=== PATIENT | male | born 1985 | race African-American/Black ===

== ENCOUNTER 2016-08-28 17:55 | Emergency (ER) | payer SELFPAY ==
[2016-08-28 17:56] VITALS: BP 152/93; PULSE 84; RESP 20; TEMP 98.9; O2SAT 98
[2016-08-28] MEDS ORDERED: ZOFR4TAB3 SL (21:43)
== END 2016-08-28 18:22 | disposition left against medical advice (07) ==
LOC: NED 17:55
DX: K92.9 Disease of digestive system, unspecified (principal)
CPT/HCPCS: 99281

== ENCOUNTER 2016-08-28 19:29 | Emergency (ER) | payer BC ==
[2016-08-28 19:36] VITALS: BP 162/98; PULSE 79; RESP 18; TEMP 97.9; O2SAT 98
[2016-08-28] MEDS ORDERED: SODIUM CHLOR 0.9% 1000 ML INJ 1,000 ML IV ONE (20:23)
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
[2016-08-28] MEDS ORDERED: SODIUM CHLORIDE 0.9% FLUSH 10 ML FLUSH IVF PRN (20:30)
[2016-08-28] MEDS ORDERED: ONDANSETRON HCL 4 MG/2 ML VIAL IVP ONE (20:30)
[2016-08-28] MEDS ORDERED: PANTOPRAZOLE SODIUM 40 MG VIAL IVP ONE (20:30)
[2016-08-28] MEDS ORDERED: ONDANSETRON ODT 4 MG TAB PO ONE (20:45)
[2016-08-28 21:14] LABS: BLOOD, URINE NEG (NEG); COMMENT (UR) CULTURE INDICATED; CULTURE IF INDICATED CULTURE INDICATED; GLUCOSE,URINE NEG (NEG); KETONE, URINE NEG (NEG); MUCUS URINE FEW /lpf (OCC); NITRITE,URINE NEG (NEG); SQUAMOUS EPITHELIAL CELL URINE 1 /hpf (0-5); URINE COLOR YELLOW (YELLW/STRAW)
--- NOTE | 2016-08-28 21:19 | RADRPT ---
EXAM DATE/TIME: 08/28/2016 20:51 [facility] COMPARISON: No previous studies available for comparison. INDICATIONS : Nausea. Reflux. MEDICAL HISTORY : None. SURGICAL HISTORY : None. ENCOUNTER: Initial ACUITY: 4 - 6 days PAIN SCORE: 5/10 LOCATION: Bilateral upper quadrant FINDINGS: Supine view of the abdomen was performed. The abdominal bowel gas pattern is normal. No abnormal ma sses, calcifications, or organomegaly is seen. The visualized lower lungs are clear. The osseous st ructures are unremarkable. CONCLUSION: Benign abdomen. Gómez Adams MD on August 28, 2016 at 21:16 Board Certified Radiologist. This report was verified electronically.
[2016-08-28] MEDS ORDERED: ZOFR4TAB3 SL (21:43)
== END 2016-08-28 21:51 | disposition home or self-care (01) ==
LOC: NEPE 19:29
DX: R11.2 Nausea with vomiting, unspecified (principal); I10 Essential (primary) hypertension; F17.200 Nicotine dependence, unspecified, uncomplicated; R82.71 Bacteriuria
CPT/HCPCS: 74000; 81001; 87086; 99283

== ENCOUNTER 2017-02-06 20:38 | Emergency (ER) | payer SELFPAY ==
[~2017-02-06] VITALS: Ht 193 cm; Wt 116.0 kg
[~2017-02-06 20:38] MED LIST: ZOFR4TAB3 SL
[2017-02-06 20:40] VITALS: BP 150/97; PULSE 87; RESP 16; TEMP 98.6; O2SAT 98
[2017-02-06] MEDS ORDERED: BACT800T5 PO (21:29)
[2017-02-06] MEDS ORDERED: SULFAMETHOXAZOLE-TRIMETHOPRIM DS 800-160 MG TAB PO ONE (21:30)
[2017-02-06] MEDS ORDERED: diphenhydrAMINE HCL 50 MG CAP PO ONE (21:30)
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
== END 2017-02-06 21:44 | disposition home or self-care (01) ==
LOC: NEPK 20:38
DX: L73.9 Follicular disorder, unspecified (principal); I10 Essential (primary) hypertension; F17.200 Nicotine dependence, unspecified, uncomplicated; Z86.718 Personal history of other venous thrombosis and embolism
CPT/HCPCS: 99283